=== PATIENT | female | born 1985 | race Caucasian/White ===

== ENCOUNTER 2024-12-15 14:00 | Emergency (ER) | payer OTHER ==
[~2024-12-15] VITALS: Ht 170.2 cm; Wt 70.0 kg
[2024-12-15 14:08] VITALS: BP 133/97; PULSE 98; RESP 18; TEMP 36.7; O2SAT 100
[2024-12-15] MEDS: ONDANSETRON 4MG ODT PO ONE (15:27)
== END 2024-12-15 15:39 | disposition home or self-care (01) ==
LOC: ER 14:00
DX: R11.2 Nausea with vomiting, unspecified (principal)
CPT/HCPCS: 99283; Q0162